=== PATIENT | female | born 1950 | race Caucasian/White ===

== ENCOUNTER → 2023-08-05 12:15 | Outpatient (REF) | payer MEDICARE, OTHER, SELFPAY ==
[2023-08-05 16:45] LABS: Free T3 3.39 pg/ml (2.77-5.27); Free T4 1.78 ng/dl (0.78-2.19)
[2023-08-05 16:58] LABS: TSH 0.04 uIU/ml (0.47-4.68)
[2023-08-14 09:01] LABS: Medical Necessity Pt Refused VIT D 25
== END ==
LOC: HWLAB 12:15
PROVIDERS: ATTENDING PHYSICIAN Family Medicine
DX: E03.9 Hypothyroidism, unspecified (principal)
CPT/HCPCS: 36415; 84439; 84443; 84481

== ENCOUNTER → 2023-11-10 11:34 | Outpatient (REF) | payer MEDICARE, OTHER, SELFPAY ==
[2023-11-10 16:19] LABS: Free T3 2.87 pg/ml (2.77-5.27); Free T4 1.69 ng/dl (0.78-2.19)
[2023-11-10 16:32] LABS: TSH 0.07 uIU/ml (0.47-4.68)
== END ==
LOC: HWLAB 11:34
PROVIDERS: ATTENDING PHYSICIAN Family Medicine
DX: E03.9 Hypothyroidism, unspecified (principal)
CPT/HCPCS: 36415; 84439; 84443; 84481

== ENCOUNTER → 2023-12-22 11:48 | Outpatient (REF) | payer MEDICARE, OTHER, SELFPAY ==
[2023-12-22 16:11] LABS: Free T4 1.56 ng/dl (0.78-2.19)
[2023-12-22 17:02] LABS: TSH 0.22 uIU/ml (0.47-4.68)
== END ==
LOC: HWLAB 11:48
PROVIDERS: ATTENDING PHYSICIAN Family Medicine
DX: E03.9 Hypothyroidism, unspecified (principal)
CPT/HCPCS: 36415; 84439; 84443

== ENCOUNTER → 2024-01-09 13:32 | Outpatient (REF) | payer MEDICARE, OTHER, SELFPAY | LOC: HWRCS 13:32 | PROVIDERS: ATTENDING PHYSICIAN Internal Medicine; FAMILY PHYSICIAN Family Medicine | DX: I25.5 Ischemic cardiomyopathy (principal); I48.0 Paroxysmal atrial fibrillation; I25.10 Atherosclerotic heart disease of native coronary artery without angina pectoris | CPT/HCPCS: 93306 ==

== ENCOUNTER → 2024-03-29 09:26 | Outpatient (REF) | payer MEDICARE, OTHER, SELFPAY ==
[2024-03-29 12:02] LABS: % Basophils 0.9 % (0-2); % Eosinophils 6.3 % (0-6); % Immature Granulocytes 0.3 % (0-0.5); % Lymphocytes 15.7 % (20.5-51.1); % Monocytes 7.8 % (1.7-9.3); Absolute Basophils 0.1 10^3/uL (0-0.2); Absolute Eosinophils 0.5 10^3/uL (0-0.7); Absolute Lymphocytes 1.2 10^3/uL (1.2-3.4); Absolute Monocytes 0.6 10^3/uL (0.1-0.6); Absolute Neutrophils 5.2 10^3/uL (1.4-6.5); Hemoglobin 13.7 g/dL (12.0-16.0); Mean Corp Hgb Conc. 32.6 g/dL (33.0-37.0); Mean Corpuscular Hgb 30.4 pg (27.0-31.0); Mean Corpuscular Volume 93.3 fL (81.0-99.0); Mean Platelet Volume 12.2 fL (7.4-10.4); Nucleated Red Blood Cells % 0 %; Platelet Count 204 10^3/uL (130-400); Red Cell Dist. Width 14.3 % (11.5-14.5); White Blood Cell Count 7.6 10^3/uL (4.8-10.8)
[2024-03-29 12:12] LABS: ALT (SGPT) 16 U/L (0-35); AST (SGOT) 22 U/L (14-36); Albumin 4.6 g/dl (3.5-5.0); Alkaline Phosphatase 116 U/L (38-126); Blood Urea Nitrogen 20 mg/dl (7-17); Calcium 9.6 mg/dl (8.4-10.2); Carbon Dioxide 28 mmol/L (22-30); Chloride 99 mmol/L (98-107); Glucose 94 mg/dl (70-99); HDL Cholesterol 46 mg/dl; LDL Cholesterol, Calculated 53 mg/dl; Potassium 4.5 mmol/L (3.5-5.1); Sodium 138 mmol/L (135-145); Total Bilirubin 0.5 mg/dl (0.2-1.3); Total Cholesterol 133 mg/dl (50-199); Total Protein 7.9 g/dl (6.3-8.2); Triglyceride 174 mg/dl (10-149); Very Low Density Lipoprotein 34 mg/dl (0-30); eGFR > 60.00
== END ==
LOC: HWLAB 09:26
PROVIDERS: ATTENDING PHYSICIAN Internal Medicine
DX: E78.5 Hyperlipidemia, unspecified (principal); I25.10 Atherosclerotic heart disease of native coronary artery without angina pectoris; Z79.01 Long term (current) use of anticoagulants
CPT/HCPCS: 36415; 80053; 80061; 85025

== ENCOUNTER → 2024-08-23 10:14 | Outpatient (REF) | payer MEDICARE, OTHER, SELFPAY | LOC: WDC 10:14 | PROVIDERS: ATTENDING PHYSICIAN Student in an Organized Health Care Education/Training Program | DX: N63.22 Unspecified lump in the left breast, upper inner quadrant (principal) | CPT/HCPCS: 76642; 77062; 77066 ==

== ENCOUNTER → 2024-09-22 10:10 | Outpatient (REF) | payer MEDICARE, OTHER, SELFPAY ==
[2024-09-22 13:32] LABS: TSH 0.23 uIU/ml (0.47-4.68)
== END ==
LOC: HWLAB 10:10
PROVIDERS: ATTENDING PHYSICIAN Student in an Organized Health Care Education/Training Program
DX: E03.9 Hypothyroidism, unspecified (principal)
CPT/HCPCS: 36415; 84443

== ENCOUNTER → 2025-03-14 09:10 | Outpatient (REF) | payer MEDICARE, OTHER, SELFPAY ==
[2025-03-14 12:34] LABS: Hematocrit 44.6 % (37.0-47.0); Hemoglobin 14.5 g/dL (12.0-16.0); Mean Corp Hgb Conc. 32.5 g/dL (33.0-37.0); Mean Corpuscular Volume 95.3 fL (81.0-99.0); Nucleated Red Blood Cells % 0 %; Platelet Count 185 10^3/uL (130-400); Red Cell Dist. Width 14.7 % (11.5-14.5)
[2025-03-14 13:09] LABS: ALT (SGPT) 16 U/L (0-35); AST (SGOT) 24 U/L (14-36); Albumin 4.7 g/dl (3.5-5.0); Alkaline Phosphatase 108 U/L (38-126); Blood Urea Nitrogen 15 mg/dl (7-17); Calcium 9.5 mg/dl (8.4-10.2); Carbon Dioxide 27 mmol/L (22-30); Chloride 99 mmol/L (98-107); Glucose 93 mg/dl (70-99); HDL Cholesterol 47 mg/dl; LDL Cholesterol, Calculated 195 mg/dl; Potassium 4.3 mmol/L (3.5-5.1); Sodium 135 mmol/L (135-145); Total Protein 8.3 g/dl (6.3-8.2); Very Low Density Lipoprotein 35 mg/dl (0-30); eGFR 59.86
== END ==
LOC: HWLAB 09:10
PROVIDERS: ATTENDING PHYSICIAN Internal Medicine; FAMILY PHYSICIAN Student in an Organized Health Care Education/Training Program
DX: E03.9 Hypothyroidism, unspecified (principal); E78.5 Hyperlipidemia, unspecified; I24.9 Acute ischemic heart disease, unspecified
CPT/HCPCS: 36415; 80053; 80061; 84443; 85025